=== PATIENT | female | born 1980 | race Caucasian/White ===

== ENCOUNTER 2016-09-21 16:10 | Emergency (ER) | payer BC ==
--- NOTE | ~2016-09-21 | CT2 ---
[facility] A Service of [facility] & [facility] RADIOLOGY TEXT RESULTS PATIENT: MILO BAUMANN LOCATION: [facility] : 76 UNIT #: [id number] AGE: [address]: Mari Mitchell APRN SEX: F ORDER DR: [id number] [facility] [address] [place], [place] [address] [id number] E MR#: [id number] Acc #: [id number] NAME: MILO BAUMANN : 1980 SEX: F STUDY DATE/TIME: 09/21/2016 17:43 UNIT: [facility] ROOM: STUDY DESCRIPTION: CT Abd and Pelv W Cont Attending Physician: Mari Mitchell A.P.R.N. Ordering Physician: Eliecer Mendez M.D. Primary Care Physician: No Primary Care Physician MEDICAL IMAGING REPORT This report is preliminary unless electronic signature is present EXAM CT of the abdomen and pelvis with IV contrast media. HISTORY Abdominal cramping, diarrhea, nausea and vomiting for 1 week. TECHNIQUE Transaxial imaging of the abdomen and pelvis was performed with IV contrast media. This CT exam was performed with one or more of the following radiation dose reduction techniques: automatic exposure control, adjustment of mA and/or kV according to patient size, and iterative reconstruction. FINDINGS Scans through the lung bases show an infiltrate in the right lower lobe posteromedially. Postoperative changes of prior augmentation mammoplasty are present. The liver, spleen are normal. There is fluid identified around the gallbladder. Adrenal glands are normal and the pancreas is normal. Both the right and left kidney are normal. No dilated or thickened loops of bowel are identified in the abdomen or pelvis. There is no free fluid identified. The uterus appears unremarkable. There is advanced degenerative disc disease with disc bulging at L3-L4 and L4-L5, and L5-S1 and evidence of a disc protrusion centrally at L5-S1 extending below the level of the disc space. CONCLUSION 1. Somewhat mass-like appearing right lower lobe infiltrate. I would suggest followup imaging until complete clearing. A mass is unlikely in this age, but certainly cannot be excluded. 2. Pericholecystic fluid raising the question of cholecystitis. 3. Postop changes of bilateral augmentation mammoplasty. 4. Degenerative disc disease at L3-L4, L4-L5, and L5-S1 with a central disc protrusion extending below the disc space in the midline at STS. [facility] A Service of [facility] & [facility] / [facility] RADIOLOGY TEXT RESULTS PATIENT: MILO BAUMANN LOCATION: [facility] : [birth year] UNIT #: [id number] AGE: [address]: Mari Mitchell APRN SEX: F ORDER DR: L5-S1. STAT * RESULT Dictated by... Demetris Ghotra M.D. THIS IS AN ELECTRONICALLY VERIFIED REPORT Demetris Ghotra M.D. at 09/21/2016 10:17 PM NIKKO/agustina TD: 09/21/2016 18:11 JOB #: [id number] MEDICAL IMAGING REPORT Page 1 of 1 COPY
[~2016-09-21 16:10] MED LIST: MULTI-DAY VITAM1 TAB PO; PAIN RELIEF325 M1 PO
[2016-09-21 16:16] LABS: BILIRUBIN, DIRECT 0.1 mg/dL (0.0-0.2); BILIRUBIN,TOTAL 0.1 mg/dL (0.2-2.0); BUN/CREATININE RATIO 21.25; CALCIUM SERUM 8.8 mg/dL (8.4-10.2); CREATININE SERUM 0.8 mg/dL (0.6-1.4); GLOM FILT RATE Estimated 94.3 mL/min (>60); PROTEIN TOTAL SERUM 6.9 g/dL (6.0-8.3)
[2016-09-21 16:44] LABS: URINE APPEARANCE CLEAR; URINE BILIRUBIN NEG (NEG); URINE BLOOD NEG (NEG); URINE COLOR STRAW; URINE GLUCOSE NORM (NORM); URINE KETONE NEG (NEG); URINE LEUKOCYTE ESTERASE 1+ (NEG); URINE NITRATE NEG (NEG); URINE PROTEIN NEG (NEG); URINE SOURCE CLEAN CATCH; URINE SPECIFIC GRAVITY 1.005 (1.003-1.035); URINE UROBILINOGEN NORM (NORM)
[2016-09-21 17:04] LABS: CULTURE INDICATED? NO; URINE SQUAMOUS EPITHELIAL CELL FEW /[HPF]; UWBCS1 AUWI 0-2 (0-5)
[2016-09-21 17:48] LABS: BASOPHIL# 0.1 X10e3 (0-0.3); BASOPHIL% 0.7 % (0-2.5); EOSINOPHIL# 0.2 X10e3 (0-0.7); EOSINOPHIL% 2.2 % (0.0-7.0); HEMATOCRIT 34.2 % (35.0-45.0); HEMOGLOBIN 11.3 gm/dL (12.0-16.0); LYMPHOCYTE# 4.1 X10e3 (1.0-3.5); LYMPHOCYTE% 44.2 % (17.0-45.0); MEAN CELL VOLUME 91.8 FL (83-96); MEAN CORPUSCULAR HEMOGLOBIN 30.3 PG (28-34); MEAN PLATELET VOLUME 8.7 FL (6.5-11.5); MONOCYTE# 0.9 X10e3 (0-1.0); MONOCYTE% 9.1 % (3.0-12.0); NEUTROPHIL# 4.1 X10e3 (1.5-7.1); NEUTROPHIL% 43.8 % (40-75); PLATELET COUNT 208 X10e3 (140-420); RED BLOOD COUNT 3.72 X10e (3.90-5.30); RED CELL DISTRIBUTION WIDTH 13.3 % (11.0-15.5); WHITE BLOOD COUNT 9.3 X10e3 (4.0-10.5)
[2016-09-21 17:50] LABS: DIFF IND NO
[2016-09-24 10:26] LABS: CHLAMYDIA TRACH Not Detected (Not Detected); N GONOR Not Detected (Not Detected)
== END 2016-09-21 18:55 | disposition home or self-care (01) ==
LOC: CFTX 16:10
PROVIDERS: Nurse Practitioner
DX: R10.2 Pelvic and perineal pain (principal); J18.9 Pneumonia, unspecified organism; F17.210 Nicotine dependence, cigarettes, uncomplicated
CPT/HCPCS: 36415; 74177; 80048; 80076; 81003; 83690; 84703; 85025; 87491; 87591; 87808; 87905; 96361; 96372; 96374; 99284; J2405; Q9967

== ENCOUNTER 2016-11-27 18:13 | Emergency (ER) | payer BC ==
--- NOTE | ~2016-11-27 | CR142 ---
[facility] A Service of [facility] & [facility] RADIOLOGY TEXT RESULTS PATIENT: MILO CAMERON LOCATION: [facility] : 76 UNIT #: [id number] AGE: [address]: Marge Jack APRN SEX: F ORDER DR: [id number] [facility] [address] [place], [place] [address] [id number] MR#: [id number] Acc #: [id number] NAME: MILO CAMERON : 1980 SEX: F STUDY DATE/TIME: 11/27/2016 19:03 UNIT: [facility] ROOM: STUDY DESCRIPTION: CR Hand Min 3 Views Rt Attending Physician: Marge Jack A.P.R.N. Ordering Physician: Ed Cory Zhang M.D. Primary Care Physician: No Primary Care Physician MEDICAL IMAGING REPORT This report is preliminary unless electronic signature is present EXAM Right hand, 3 views. HISTORY History of right hand laceration. Possible foreign body medial hand. FINDINGS AP, lateral, and oblique projections of the hand show good mineralization with normal carpal, metacarpal, and phalangeal anatomy without indication of fracture, dislocation, or soft tissue radiopaque foreign body. IMPRESSION Normal hand. Dictated by... Mega Abel M.D. THIS IS AN ELECTRONICALLY VERIFIED REPORT Mega Abel M.D. at 11/28/2016 3:09 PM BECKI/sukh TD: 11/28/2016 09:46 JOB #: [id number] MEDICAL IMAGING REPORT Page 1 of 1 COPY
== END 2016-11-27 20:12 | disposition home or self-care (01) ==
LOC: CFTX 18:13 → CED 18:13 → CFTX 19:25
DX: S61.411A Laceration without foreign body of right hand, initial encounter (principal); F17.210 Nicotine dependence, cigarettes, uncomplicated; W25.XXXA Contact with sharp glass, initial encounter; Y92.009 Unspecified place in unspecified non-institutional (private) residence as the place of occurrence of the external cause
CPT/HCPCS: 12001; 73130; 99283